=== PATIENT | male | born 1965 | race Caucasian/White ===

== ENCOUNTER 2017-05-02 17:06 | Day surgery (SDC) | payer OTHER ==
[2017-05-02] VITALS (17 sets, daily range): BP systolic 72–115; BP diastolic 42–84; PULSE 72–111; RESP 14–26; Ht 188 cm; Wt 87.2 kg
[~2017-05-02] VITALS: Ht 188 cm; Wt 87.2 kg
[~2017-05-02 17:06] MED LIST: LACTATED RINGER'S 1,000 ML IV* SCH; PHENYLephrine (100 MCG/ML) 5ML SYG ONE
--- NOTE | 2017-05-02 17:50 | HPN ---
Date/Time of Note Date/Time of Note DATE: 05/02/17 TIME: 17:50 Interval H&P Admission Note Pt. seen H&P reviewed: No system changes ANEESH CRAWFORD May 02, 2017 17:50
[2017-05-02] MEDS ORDERED: MIDAZOLAM 1 MG/ML 2 ML INJ ONE (18:08)
[2017-05-02] MEDS ORDERED: PROPOFOL 20 ML ONE (18:12)
[2017-05-02] MEDS ORDERED: LIDOCAINE 2% (SDV) 5 ML INJ ONE (18:12)
[2017-05-02] MEDS ORDERED: MEPERIDINE 100 MG INJ ONE (18:13)
[2017-05-02] MEDS ORDERED: CEFAZOLIN 1 GM INJ ONE (18:39)
[2017-05-02] MEDS ORDERED: EPHEDrine SULFATE 50 MG/5 ML SYG ONE (19:10)
--- NOTE | 2017-05-02 19:38 | OPPN ---
Date/Time of Note Date/Time of Note DATE: 05/02/17 TIME: 19:37 Operative Report Preoperative Diagnosis left distal biceps tendon rupture Postoperative Diagnosis left distal biceps tendon rupture Operation/Procedure Performed primary repair of left distal biceps tendon rupture Surgeon see signature line speech pathology assistant none Anesthesia: general Estimated blood loss: 0 - 10 ml's Transfusion Required none Specimen none Grafts/Implants none Complications none ANEESH CRAWFORD May 02, 2017 19:38
[2017-05-02] MEDS ORDERED: HYDROmorphONE 2 MG/ML SYG ONE (19:42)
[2017-05-02] MEDS: HYDROmorphONE (0.2 MG/ML) 10ML SYG IV PRN ×4 (19:55→20:35)
[2017-05-02] MEDS ORDERED: FENTAnyl 50 MCG/ML VIAL IV PRN ×3 (20:00)
[2017-05-02] MEDS ORDERED: ONDANSETRON 4 MG INJ IV PRN (20:00)
[2017-05-02] MEDS ORDERED: MEPERIDINE 25 MG INJ IV PRN (20:00)
[2017-05-02] MEDS ORDERED: OXYCODONE/ACETAMINOPHEN (5/325) TAB PO PRN ×2 (20:00)
[2017-05-02] MEDS ORDERED: MIDAZOLAM 1 MG/ML 2 ML INJ IV PRN (20:00)
[2017-05-02] MEDS ORDERED: hydrALAzine 20 MG INJ IV PRN (20:00)
[2017-05-02] MEDS ORDERED: DIPHENHYDRAMINE 50 MG INJ IV PRN (20:00)
[2017-05-02] MEDS ORDERED: HYDROmorphONE (0.2 MG/ML) 10ML SYG IV PRN ×2 (20:00)
[2017-05-02] MEDS ORDERED: EPHEDrine SULFATE 50 MG/5 ML SYG IV PRN (20:00)
[2017-05-02] MEDS ORDERED: LABETALOL HCL 20MG INJ IV PRN (20:00)
[2017-05-02] MEDS ORDERED: METOCLOPRAMIDE 10 MG INJ IV PRN (20:00)
--- NOTE | 2017-05-03 02:16 | OPR ---
DATE OF OPERATION: 05/02/2017 SURGEON: Conrad Dupont MD. ANESTHESIA: General. PREOPERATIVE DIAGNOSIS: Left distal biceps rupture. POSTOPERATIVE DIAGNOSIS: Left distal biceps rupture. OPERATION PERFORMED: Primary repair of left distal biceps rupture. OPERATIVE FINDINGS: Tendinosis and pseudotendon formation at the left distal biceps tendon insertion at the bicipital tuberosity. INDICATION FOR PROCEDURE: A 51-year-old male with injury to the left elbow. MRI was obtained after seeing him in clinic and showed partial distal biceps rupture. He attempted for the next few months to try conservative management and therapy, but had persistent pain and weakness in the left elbow. Options were further discussed and he elected to proceed with surgical intervention, understanding the risks, benefits. OPERATIVE PROCEDURE: Patient was seen in the preoperative area and all further questions were answered. Again, he gave informed consent understanding the risks and benefits. He was taken to the operative suite, and placed in supine position. He was placed under general anesthesia and 2 g of Ancef IV given. Tourniquet placed on left upper extremity and left upper extremity was prepped with ChloraPrep stick and draped in the usual sterile fashion. Esmarch bandage was used to exsanguinate the limb and tourniquet inflated to 250 mmHg. A longitudinal incision over the distal biceps tendon was utilized with sharp dissection carried down through skin and subcutaneous tissue. The biceps tendon was identified lateral to the brachial artery and median nerve and the lateral aspect of the biceps tendon was dissected down to its insertion on the bicipital tuberosity. The biceps tendon was circumferentially identified and there was found to be significant tendinosis and pseudotendon formation at the bicipital insertion at the bicipital tuberosity. The tuberosity was debrided of all soft tissues including the scar tissue and pseudotendon formation. A curette was used to prepare the bone for biceps insertion. After adequate preparation of the bone, 2 DePuy Mitek Super Quick Plus #2 OrthoCord suture anchors were placed in the biceps insertion at the bicipital tuberosity. Both suture anchors were double loaded and 1 limb from each of the sutures totaling 4 total proximal limbs were brought up through the biceps tendon in a running, locking Krackow-type fashion. The sutures were tied proximally and the distal 4 limbs were tensioned with the elbow in 20 degrees of flexion and the biceps tendon was brought down to its insertion point. The distal limbs were tied together and there was excellent approximation with no gapping at the biceps insertion. The elbow was gently ranged and the biceps tendon was found to be nicely secured. Wound was copiously irrigated. Skin closed with 4-0 nylon. Xeroform placed on the wound followed by sterile gauze, Webril and a long-arm splint with the elbow flexed at 90 degrees. Tourniquet deflated after 53 minutes and patient was awakened from anesthesia. He was taken to the postoperative suite in stable condition. Tolerated procedure well without complication. SPECIMENS: None. ESTIMATED BLOOD LOSS: 5 mL. COUNTS: Sponge, instrument and needle counts correct. TOURNIQUET TIME: 53 minutes. CONDITION ON DISCHARGE: Stable. Dictated By: Conrad Dupont MD /[email or web address]/[email or web address] /Document#: [id number]
== END 2017-05-02 21:15 | disposition home or self-care (01) ==
LOC: SDS 17:06
PROVIDERS: ATTEND Orthopaedic Surgery Hand Surgery
DX: S46.212A Strain of muscle, fascia and tendon of other parts of biceps, left arm, initial encounter (principal); X58.XXXA Exposure to other specified factors, initial encounter; Y92.89 Other specified places as the place of occurrence of the external cause; E78.5 Hyperlipidemia, unspecified
CPT/HCPCS: 24341; C1713; J0690; J1170; J2175; J2250; Z7512; Z7610; J2370